=== PATIENT | male | born 1990 | race Caucasian/White ===

== ENCOUNTER 2024-05-29 07:10 | Outpatient (CLI) | payer MEDICARE, OTHER, SELFPAY ==
--- NOTE | 2024-05-29 07:15 | CT_ITS ---
FINAL REPORT TECHNIQUE: Noncontrast CT exam of the abdomen and pelvis. This study was performed with techniques to keep radiation doses as low as reasonably achievable (ALARA). Individualized dose reduction techniques using automated exposure control or adjustment of mA and/or kV according to the patient''s size were employed. CLINICAL HISTORY: UMBILICVAL HERNIA COMPARISON: None FINDINGS: Abdomen: Lung bases are clear. Liver, spleen, pancreas and adrenal glands have a normal CT appearance in their limited unenhanced state. The gallbladder is unremarkable in appearance. The abdominal bowel is unremarkable. There is a supraumbilical hernia containing omental fat. The hernia sac measures up to 44 x 35 mm on axial imaging. There is some stranding of the umbilical fat suggesting fatty ischemic change. The kidneys show no stone disease or obstruction. No obvious renal mass is present. No ureteral stones are present. Pelvis: No distal ureteral stones are seen. Bladder is unremarkable. No fluid collection or adenopathy is seen. The appendix is normal. The pelvic bowel is unremarkable. The prostate is normal in appearance. There are small bilateral inguinal hernias with a tiny portion of bladder extending into the right inguinal hernia. IMPRESSION: There is a supraumbilical hernia containing fat as described. There is some stranding of the fat suggesting fatty ischemia. Small bilateral inguinal hernias are present, with a tiny portion of the bladder extending into the right inguinal hernia. Reviewed, Interpreted and Dictated by Craig Dubose MD Transcribed by Alessandra Kennedy Authenticated and [facility]
== END 2024-05-29 23:59 | disposition home or self-care (01) ==
LOC: RAD 07:11
PROVIDERS: PCP Nurse Practitioner; Visit Provider Nurse Practitioner
DX: K42.9 Umbilical hernia without obstruction or gangrene (principal)
CPT/HCPCS: 74176

== ENCOUNTER 2024-06-30 12:57 | Outpatient (CLI) | payer MEDICARE, OTHER, SELFPAY ==
[2024-06-30 13:21] LABS: Basophils # 0.1 K/mm3 (0-0.2); Eosinophils # 0.1 K/mm3 (0.0-0.4); Eosinophils % 1.8 % (0.1-12.0); Hematocrit 43.1 % (42.0-52.0); Hemoglobin 14.3 g/dL (14.1-18.0); Lymphocytes # 2.2 K/mm3 (0.7-4.5); Lymphocytes % 30.2 % (10-50); Mean Corpuscular HGB Conc 33.2 g/dL (31.8-35.4); Mean Corpuscular Hemoglobin 30.4 pg (27.0-31.2); Mean Corpuscular Volume 91.7 fl (80-94); Mean Platelet Volume 10.2 fl (7.4-10.4); Monocytes # 0.7 K/mm3 (0.1-1.0); Monocytes % 9.1 % (1.7-9.3); Neutrophils # 4.2 K/mm3 (1.8-7.8); Neutrophils % 57.6 % (37.0-80.0); Platelet Count 275 K/mm3 (142-424); Red Cell Distribution Width 12.5 % (11.5-17.5); White Blood Count 7.3 K/mm3 (4.8-10.8)
[2024-06-30 13:24] LABS: Microscopic, Urine URINE MICROSCOPIC (MICROSCOPIC)
[2024-06-30 13:24] LABS: Chloride 102 mmol/L (98-107); Potassium 3.8 mmoL/L (3.5-5.1); Sodium 136 mmol/L (136-145)
[2024-06-30 13:25] VITALS: BMI 34.8
[2024-06-30 13:27] LABS: Blood Urea Nitrogen 6 mg/dl (9-20); Creatinine Clearance Estimated 172 mL/min (50-200); Estimated Glomerular Filt Rate 87 ml/min (>60); GFR (African American) 105 ML/MIN (>60)
[2024-06-30 13:28] LABS: Anion Gap 10.8 mEq/L (5-15); Calcium 8.7 mg/dl (8.4-10.2); Carbon Dioxide 27 mmol/L (22.0-30.0); Glucose 99 mg/dl (74-100)
[2024-06-30 13:33] LABS: Appearance,Urine CLEAR (Clear); Bilirubin,Urine Negative (Negative); Blood, Urine Negative (Negative); Color,Urine YELLOW (Yellow); Glucose,Urine (UA) Negative (Negative); Ketones,Urine Negative (Negative); Leukocyte Esterase,Urine Negative (Negative); Nitrate,Urine Negative (Negative); PH,Urine 5.5 (5.0-8.5); Protein,Urine Negative (Negative); Specific Gravity, Urine >= 1.030 (1.005-1.030)
[2024-06-30 13:43] LABS: Bacteria,Urine Trace /lpf
== END 2024-06-30 23:59 | disposition home or self-care (01) ==
LOC: PREOP 12:59
PROVIDERS: PCP Nurse Practitioner; Visit Provider Surgery
DX: K42.9 Umbilical hernia without obstruction or gangrene (principal)
CPT/HCPCS: 80048; 81001; 85025

== ENCOUNTER 2024-07-09 06:59 | Day surgery (SDC) | payer MEDICARE, OTHER, SELFPAY ==
[2024-07-09] VITALS (9 sets, daily range): BP systolic 108–139; BP diastolic 65–93; PULSE 95–120; RESP 14–18; TEMP 36.2–36.7; O2SAT 91–99; BMI 34.8
[2024-07-09] MEDS: 0.9 % SODIUM CHLORIDE 1000ML 1,000 ML 25 ML IV (07:15)
--- NOTE | 2024-07-09 07:28 | EXP.ANES.CKL ---
[facility] Disclaimer: The information contained in this section may have been updated after the patient was seen, as this information can be updated by other users. Medical History Asthma Hydrocele Deviated septum Surgical History History of hernia repair Family History Other Family history of COPD (chronic obstructive pulmonary disease) Family history of cancer Family history of diabetes mellitus Family history of hypertension Social History Smoking Status: Never smoker alcohol intake: never substance use type: denies use current occupational status: unemployed Travel in the last 8 weeks: None [facility] Anesthesia Checklist Patient Identification Patient Identification: Arm Band and Verbal (Name & ) Structural Data Admitted From: Home Planned Operative Procedure/s: UHR Consent for Planned Operative Procedure(s) Verified: Yes Verified Documents: Surgical Consent and History and Physical NPO Status Verified Time NPO: 20:00 Chart Verification Results Verified: CBC Additional verifications Patient : No Anesthesia Reactions: No Hx Blood Transfusions: No Blood Transfusion Reaction: No Cardiovascular Assessment Heart Sounds: S1 & S2 Pulse Rhythm: Irregular Peripheral Edema: No Airway Assessment Mallampati Score:: Class I C-Spine Mobility Assessed: Yes (FROM demonstrated) TMJ Mobility Assessed: Yes Dentition: Good Dentition (Nothing loose per pt.) Neurological Assessment Level of Consciousness: Awake, Alert, Appropriate and Follows Commands Hx Seizures: No Numbness or tingling in extremities: No Anesthesia Plan Anesthesia Risk discussed: Yes Anesthesia Plan: Verified ASA Class: II Anesthesia Type: General
--- NOTE | 2024-07-09 07:32 | EXP.OP.NOTE ---
Date of procedure: 07/09/24 Pre-op Diagnosis:: Umbilical hernia Post-op Diagnosis:: Same Procedure performed:: Open umbilical hernia repair (primary repair without mesh) Surgeon:: Roque Albarado MD POLISHING WHEEL SETTER:: Theresa Sam Anesthesia: GETA Estimated blood loss (mL): 15 Operative findings:: Fingertip defect with incarcerated omentum Operative note:: After informed consent was obtained the patient was taken to the operating room and placed in the supine position. General anesthesia was induced and his abdomen was prepped and draped in a sterile fashion. After infiltration with local anesthetic a curvilinear infraumbilical incision was made. The deep subcutaneous tissue was dissected with electrocautery and the umbilical stump was transected. Incarcerated omentum was encountered. A combination of blunt dissection and electrocautery was utilized to transect the hernia sac at the defect margin. Incarcerated omentum was transected with electrocautery. No obvious bowel visible. The decision was made to proceed with a primary closure secondary to defect size. The repair was completed with 0 Ethibond in an interrupted manner. The umbilical stump was reapproximated with 2-0 Vicryl and skin was then closed with interrupted 4-0 Monocryl in an interrupted subcuticular fashion. Dressings were applied and the patient was transferred recovery in stable condition after extubation. Condition: stable Disposition: PACU Specimens:: none Complications:: No immediate
[2024-07-09] MEDS: CLINDAMYCIN PHOSPHATE/D5W 900 MG/50 ML PIGGYBACK 100 MG IV (07:39)
[2024-07-09] MEDS: LIDOCAINE 1% 20ML MDV 20 ML (08:00)
--- NOTE | 2024-07-09 08:56 | EXP.ANES.I ---
[facility] Anesthesia Record Part I Anesthesia Record I Intake, IV Amount: 700 Hydration: Adequate Estimated blood loss (mL): 25 Urine output (mL): 0 Blood Products used (#): none Blood Pressure: 139/93 SaO2: 91 Pulse Rate: 98 Airway Patency: Patent Respiratory Rate: 14 Temperature: 97.3 F Patient is:: Drowsy and Stable Stable to PACU at:: 08:55
--- NOTE | 2024-07-09 09:36 | EXP.ANES.II ---
[facility] Anesthesia Record Part II Anesthesia Record Part II Discharge Time: 09:20 Destination: Surgical Day Care (OP Surgery) PACU nurse assessment reviewed?: Yes Patient Condition:: Good Anesthesia Complications:: None Swallowing reflex intact?: Yes Airway Patency: Patent Cyanosis?: No Blood Pressure: 117/78 SaO2: 99 Respiratory Rate: 16 Pulse Rate: 100 Temperature: 97.3 F Mental Status: Alert & Oriented Pain level:: 0 Nausea and/or vomitting:: None Intake, IV Amount: 700 Hydration: Adequate
== END 2024-07-09 09:56 | disposition home or self-care (01) ==
PROVIDERS: PCP Nurse Practitioner; Visit Provider Surgery
PROC: (CPT 49592; principal; 2024-07-09 08:30)
DX: K42.9 Umbilical hernia without obstruction or gangrene (principal)
CPT/HCPCS: 49592; 96374; J3490; J0736; J1100; J1885; J2250; J2405; J3010; J7030